=== PATIENT | female | born 1945 | race Caucasian/White ===

== ENCOUNTER 2017-01-28 16:48 | Emergency (ER) | payer MEDICAID, OTHER ==
[~2017-01-28] VITALS: Ht 157.5 cm; Wt 77.0 kg
[2017-01-28 16:52] VITALS: Ht 157.5 cm; Wt 77.0 kg
[2017-01-28] MEDS ORDERED: ALBUTEROL 0.083% (NEB) 2.5 MG/3 ML AMP HHN STA (17:18)
[2017-01-28] MEDS ORDERED: DEXAMETHASONE 10 MG/ML 1 ML INJ PO ONE (17:30)
--- NOTE | 2017-01-28 17:50 | RADRPT ---
PROCEDURE: XR Chest. CLINICAL INDICATION: COUGH SOB TECHNIQUE: Single frontal view of the chest was obtained COMPARISON: None FINDINGS: Atherosclerotic changes are seen in the aortic arch. The cardiac silhouette is unremarkable. The lungs are clear. There is no pleural effusion or pneumothorax. IMPRESSION: No definite abnormalities are identified. RPTAT:AAJJ Dani Kohler Physician Date Time Electronically viewed and signed by Dani Kohler Physician on 01/28/2017 17:50 /
[2017-01-28] MEDS ORDERED: ALBU8.5H3 INH (17:57)
[2017-01-28] MEDS ORDERED: AZIT250T94 PO (17:57)
[2017-01-28] MEDS ORDERED: D-ME473S2 PO (17:59)
--- NOTE | 2017-01-28 18:01 | ERD ---
ER Documentation Chief Complaint Date/Time DATE: 01/28/17 TIME: 18:00 Chief Complaint complains of cough x 3 days HPI 71-year-old female presents with a productive cough last 2 days and possible wheezing. There is no history of fevers, chest pain, vomiting, abdominal pain. ROS All systems reviewed and are negative except as per history of present illness. Medications Home Meds Active Scripts Dextromethorphan Hb-Promethazine Hcl* (Promethazine DM* Syrup) 473 Ml Syrup, 5 ML PO Q6 Y for COUGH for 5 Days, ML 4 OZ Prov:DAWNA BUTLER MD 01/28/17 Albuterol Sulfate* (Proair HFA*) 8.5 Gm Hfa.aer.ad, 2 PUFF INH Q4, #1 INHALER Prov:DAWNA BUTLER MD 01/28/17 Azithromycin* (Zithromax*) 250 Mg Tablet, 250 MG PO .ZPACK DIRECTED, #6 TAB TAKE 500 MG (2 TABS) THE FIRST DAY THEN 250 MG (1 TAB) DAYS 2-5 Prov:DAWNA BUTLER MD 01/28/17 Physical Exam Vitals Vital Signs Date Time Temp Pulse Resp B/P Pulse Ox O2 Delivery O2 Flow Rate FiO2 01/28/17 17:39 75 20 95 21 01/28/17 16:52 99.0 75 20 179/77 95 Physical Exam Const: [] Alert, [id number] per Head: Atraumatic Eyes: Normal Conjunctiva ENT: Normal External Ears, Nose and Mouth. TMs and oropharynx normal. Neck: Full range of motion..~ No meningismus. Resp: Clear to auscultation bilaterally. Coarse breath sounds and mild wheezing diffusely without rales or retractions. Cardio: Regular rate and rhythm, no murmurs Abd: Soft, non tender, non distended. Normal bowel sounds Skin: No petechiae or rashes Back: No midline or flank tenderness Ext: No cyanosis, or edema Neur: Awake and alert Psych: Normal Mood and Affect Results 24 hrs Current Medications Medications (Trade) Dose Ordered Sig/Sofy Route PRN Reason Start Time Stop Time Status Last Admin Dose Admin Dexamethasone (Decadron) 8 mg ONCE ONCE PO 01/28/17 17:30 01/28/17 17:31 DC 01/28/17 17:25 Albuterol (Proventil 0.083% (Neb)) 2.5 mg ONCE STAT HHN 01/28/17 17:18 01/28/17 17:20 DC 01/28/17 17:32 Procedures/MDM Chest X-ray 1V Interpreted by me: Soft Tissue: No acute abnormalities Bones: No acute abnormalities Mediastinum/Cardiac Silhouette/Lungs: [No acute abnormalities]. Impression- normal 1 view chest x-ray Patient is given Decadron 8 mg by mouth and albuterol treatment 1. Patient had no rales or retractions on serial exam with no evidence of hypoxemia. Patient presents with signs and symptoms of bronchitis with wheezing without signs or symptoms or clinical evidence evidence of hypoxemia, respiratory distress, pneumonia, acute coronary syndrome, PE. She will be treated with Zithromax, Ventolin and promethazine. The patient was stable with no new complaints during the ER course. Clinically, there is no current evidence to suggest meningitis, sepsis, acute abdomen, pneumonia, acute coronary syndrome, pulmonary embolism, or any other emergent condition appearing to require further evaluation or hospitalization. The patient should certainly return for any new or worsening symptoms per the aftercare instructions. They should otherwise follow-up with her primary care doctor for reevaluation this week. Departure Diagnosis: Primary Impression: Wheeze Additional Impression: Cough Condition: Stable Patient Instructions: Bronchitis With Wheezing (Adult) Additional Instructions: X-ray normal. Cheque otro vez con andujar doctor primario en el proximo lynch or regresa para mas o nueva simptomas. DAWNA BUTLER MD January 28, 2017 18:01
== END 2017-01-28 18:44 | disposition home or self-care (01) ==
LOC: FTE 16:48
DX: R06.2 Wheezing (principal)
CPT/HCPCS: 71010; 94664; J1100; Z7610